=== PATIENT | female | born 1945 | race Caucasian/White ===

== ENCOUNTER 2023-06-01 06:34 | Emergency (ER) | payer MEDICARE ==
[~2023-06-01] VITALS: Ht 165.1 cm; Wt 107.7 kg
[2023-06-01 07:14] LABS: D-DIMER 1.58 MG/L FEU (0-0.50)
[2023-06-01 07:18] LABS: BASOPHILS # (AUTO) 0.1 X10'3 (0-0.2); BASOPHILS % (AUTO) 0.7 % (0-1); EOSINOPHILS # (AUTO) 0.2 X10'3 (0-0.9); EOSINOPHILS % (AUTO) 2.3 % (0-6); HEMATOCRIT 39.9 % (35.0-45.0); HEMOGLOBIN 13.5 g/dl (12.0-16.0); MEAN CORPUSCULAR HEMOGLOBIN 30.5 PG (27.0-31.0); MEAN CORPUSCULAR HGB CONC 33.8 g/dL (33.0-36.5); MEAN CORPUSCULAR VOLUME 90.4 FL (78-98); MEAN PLATELET VOLUME 7.7 FL (7.4-10.4); MONOCYTES # (AUTO) 0.6 X10'3 (0-0.9); MONOCYTES % (AUTO) 8.1 % (2-12); NEUTROPHILS # (AUTO) 6.1 X10'3 (1.8-7.7); NEUTROPHILS % (AUTO) 75.9 % (42-75); PLATELET COUNT 251 X10'3 (140-440); RED BLOOD COUNT 4.41 X10'6 (4.20-5.60)
[2023-06-01 07:24] LABS: ALBUMIN 2.9 G/DL (3.4-5.0); ANION GAP 7 (8-16); BLOOD UREA NITROGEN 16 MG/DL (7-18); BUN/CREATININE RATIO 19.8 (10.0-20.0); CALCIUM 8.6 MG/DL (8.5-10.1); CHLORIDE 105 MMOL/L (99-107); CREATININE 0.81 MG/DL (0.40-0.90); GLUCOSE 90 MG/DL (70-104); POTASSIUM 3.9 MMOL/L (3.5-5.1); PRO BRAIN NATRIURETIC PEPTIDE 415 PG/ML (0-450); SODIUM 138 MMOL/L (135-145); TOTAL CARBON DIOXIDE 26.2 MMOL/L (24-32); eCRCL 51 ML/MIN; eGFR 68 ML/MIN
[2023-06-01] MEDS ORDERED: iohexol 350MG/ML 100ml bottle IV ONE (09:02)
[2023-06-01] MEDS ORDERED: AZIT250T29 PO (11:33)
[2023-06-01 11:52] VITALS: BP 178/83; PULSE 84; RESP 16; TEMP 97.8; O2SAT 97
== END 2023-06-01 11:54 | disposition home or self-care (01) ==
LOC: ER 06:34
DX: J18.9 Pneumonia, unspecified organism (principal); R05.9 Cough, unspecified; Z88.8 Allergy status to other drugs, medicaments and biological substances; Z86.718 Personal history of other venous thrombosis and embolism; Z86.711 Personal history of pulmonary embolism
CPT/HCPCS: 36415; 71045; 71275; 80048; 83880; 84484; 85025; 85379; 93005; 93971; 99285; J3490; Q9967